=== PATIENT | female | born 1935 | race Caucasian/White ===

== ENCOUNTER 2018-08-06 14:20 | Outpatient (CLI) | payer MEDICARE ==
[~2018-08-06] VITALS: Ht 154.9 cm; Wt 59.0 kg
--- NOTE | 2018-08-06 17:15 | Consultation ---
DATE OF CONSULTATION: 08/06/2018 CONSULTING PHYSICIAN: Dexter Reyes M.D. REFERRING PHYSICIANS: 1. Dr. Rosales. 2. Dr. Woody. CHIEF COMPLAINT: Abdominal pain, anemia. HISTORY OF PRESENT ILLNESS: This is a very pleasant 82-year-old female, who was referred to us from Dr. Rosales and Dr. Woody. She is a delightful 82-year-old female. Apparently, she has history of chronic anemia. Last colonoscopy in 2004. She had some new onset of abdominal pain associated with constipation and rectal pain, had a CT of the abdomen and pelvis, which did not show any acute finding. The patient had some gallstones. According to the patient, she has been getting some probiotic and anti-gas medication and she is feeling a little bit better, but she was referred to us for evaluation for chronic anemia and possible endoscopy and colonoscopy. PAST MEDICAL HISTORY: 1. History of hypertension. 2. Chronic anemia. 3. Gallstones. ALLERGIES: No known drug allergies. MEDICATIONS: Benicar and amlodipine. PAST SURGICAL HISTORY: None. FAMILY HISTORY: Noncontributory. SOCIAL HISTORY: The patient denies any tobacco, alcohol, or illicit drug abuse. REVIEW OF SYSTEMS: A 10-point review of systems was performed and pertinent positives in HPI. PHYSICAL EXAMINATION: VITAL SIGNS: Blood pressure is 158/90, pulse is 91, respirations 20, and temperature is 98.6. HEENT: Normocephalic, atraumatic. No scleral icterus. NECK: Supple. No evidence of obvious lymphadenopathy. CARDIOVASCULAR: Regular rhythm. Plus S1 and S2. No obvious murmur. LUNGS: Clear to auscultation bilaterally. ABDOMEN: Positive bowel sounds. Soft and nontender. No rebound. No guarding. No peritoneal sign. EXTREMITIES: No cyanosis, no clubbing, no edema. ASSESSMENT AND PLAN: This is an 82-year-old female with chronic anemia, nonspecific abdominal symptoms including constipation and bloating. The patient at this time is hesitant to have a colonoscopy. States she is feeling better with the probiotics. I encouraged her to go ahead and do the colonoscopy and endoscopy because of anemia, new onset of constipation, and change in bowel habits. The patient again is very hesitant. She wants to wait until end of the August and do it possibly at the end of the August or beginning of the September. Meanwhile, I gave a prescription for VSL#3 to try. I also gave her a prescription for Xifaxan for 14 days' course. The patient was said to come back earlier if she has worsening of the symptoms, any sign of GI bleeding, any profound weight loss, or any other pathology. Otherwise, we will plan to schedule her hopefully by end of August when she calls back . I want to thank Dr. Rosales and Dr. Woody for this kind referral. Dexter Reyes M.D. DR: Anselmo JOB#: [id number] CC: Dr. Bobby WOODY M.D. ; FAX#: [phone]
[2018-08-07] MEDS ORDERED: BENICAR40 MG ORAL (07:54)
[2018-08-07] MEDS ORDERED: AMLODIPINE BES2.5 MG ORAL (07:54)
[2018-08-07 07:56] VITALS: BP 158/90
== END 2018-08-06 14:50 | disposition home or self-care (01) ==
LOC: PAN 14:20
DX: R10.9 Unspecified abdominal pain (principal); D64.9 Anemia, unspecified; K59.00 Constipation, unspecified; I10 Essential (primary) hypertension
CPT/HCPCS: 99202